=== PATIENT | female | born 1950 | race Caucasian/White ===

== ENCOUNTER 2018-03-20 06:08 | Day surgery (SDC) | payer MEDICARE, OTHER ==
[~2018-03-20] VITALS: Ht 170.2 cm; Wt 116.6 kg
[~2018-03-20 06:08] MED LIST: ASCO500 PO; FERR325 PO; Keflex500 MG PO; LEVSOD112 PO; LEVSOD50 PO; OMEPRAZOLE MAGN20 MG PO; OXYM.05NI; PANT20 PO; Prilosec Otc20 MG PO; Tamiflu75 MG PO; Zofran Odt4 MG SL
[2018-03-21 05:16] LABS: BASOPHILS ABSOLUTE AUTO 0.02 K/mm3 (0.00-0.23); BASOPHILS PERCENT AUTO 0 % (0-2); EOSINOPHILS ABSOLUTE AUTO 0.01 K/mm3 (0.00-0.68); EOSINOPHILS PERCENT AUTO 0 % (0-6); Hematocrit 29.9 % (33.0-51.0); Hemoglobin 9.2 g/dL (11.5-16.0); IMMATURE GRAN ABSOLUTE AUTO 0.08 K/mm3 (0.00-0.10); IMMATURE GRAN PERCENT AUTO 1 % (0-1); LYMPHOCYTES ABSOLUTE AUTO 1.09 K/mm3 (0.84-5.20); LYMPHOCYTES PERCENT AUTO 7 % (21-46); MONOCYTES ABSOLUTE AUTO 1.06 K/mm3 (0.16-1.47); MONOCYTES PERCENT AUTO 7 % (4-13); Mean Corpuscular HGB Conc 30.8 g/dL (31.5-36.5); Mean Corpuscular Volume 91 fL (80-100); Mean Platelet Volume 9.6 fL (9.1-12.4); NEUTROPHILS ABSOLUTE AUTO 12.55 K/mm3 (1.96-9.15); NEUTROPHILS PERCENT AUTO 85 % (41-73); Platelet Count 298 K/mm3 (150-400); RDW Coefficient Variation 15.6 % (11.7-14.2); RDW Standard Deviation 51.9 fL (35.1-46.3); Red Blood Cell Count 3.29 M/mm3 (3.80-5.20); White Blood Cell Count 14.81 K/mm3 (4.00-11.30)
[2018-03-21 05:33] LABS: Bun/Creatinine Ratio 17.3 (12.0-20.0); Calcium, Blood 8.4 mg/dL (8.5-10.1); Creatinine, Blood 0.98 mg/dL (0.40-1.00); Magnesium, Blood 2.2 mg/dL (1.6-2.4); Potassium, Blood 4.4 mmol/L (3.5-5.5)
[2018-03-21] MEDS ORDERED: ASPI325EC PO (15:30)
[2018-03-21] MEDS ORDERED: OXYC5 PO (15:30)
== END 2018-03-21 16:40 | disposition home or self-care (01) ==
LOC: ORSCMMR 06:08 → PRE IP 07:30 → EDSTATUS 07:30 → SURS 10:28 → ORSCMMR 03-21 16:40
PROVIDERS: Orthopaedic Surgery
PROC: 0SRD069 Replacement of Left Knee Joint with Oxidized Zirconium on Polyethylene Synthetic Substitute, Cemented, Open Approach (ICD-10-PCS; principal; 2018-03-20 07:30)
DX: M17.12 Unilateral primary osteoarthritis, left knee (principal); E07.9 Disorder of thyroid, unspecified; Z79.899 Other long term (current) drug therapy
CPT/HCPCS: 36415; 73560-LT; 80048; 83735; 85025; 88300; 97110; 97116; 97162; 97530; C1713; C1776; G8978; G8979; J0171; J0690; J0735; J1100; J1170; J1885; J2250; J2405; J2795; J3010; J7120

== ENCOUNTER 2019-08-24 17:27 | Inpatient (IN) | payer MEDICARE, OTHER ==
[~2019-08-24] VITALS: Ht 170.2 cm; Wt 115.9 kg
[~2019-08-24 17:27] MED LIST changes: +ASPI325EC PO; +OXYC5 PO
[2019-08-24 18:02] LABS: BASOPHILS ABSOLUTE AUTO 0.06 K/mm3 (0.00-0.23); BASOPHILS PERCENT AUTO 1 % (0-2); EOSINOPHILS ABSOLUTE AUTO 0.05 K/mm3 (0.00-0.68); EOSINOPHILS PERCENT AUTO 0 % (0-6); Hematocrit 37.3 % (33.0-51.0); Hemoglobin 11.4 g/dL (11.5-16.0); IMMATURE GRAN ABSOLUTE AUTO 0.06 K/mm3 (0.00-0.10); IMMATURE GRAN PERCENT AUTO 1 % (0-1); LYMPHOCYTES ABSOLUTE AUTO 1.02 K/mm3 (0.84-5.20); LYMPHOCYTES PERCENT AUTO 9 % (21-46); MONOCYTES PERCENT AUTO 4 % (4-13); Mean Corpuscular HGB 26.4 pg (26.0-34.0); Mean Corpuscular HGB Conc 30.6 g/dL (31.5-36.5); Mean Corpuscular Volume 86 fL (80-100); Mean Platelet Volume 9.5 fL (9.1-12.4); NEUTROPHILS ABSOLUTE AUTO 9.92 K/mm3 (1.96-9.15); NEUTROPHILS PERCENT AUTO 86 % (41-73); Platelet Count 479 K/mm3 (150-400); RDW Coefficient Variation 16.2 % (11.7-14.2); RDW Standard Deviation 50.9 fL (35.1-46.3); Red Blood Cell Count 4.32 M/mm3 (3.80-5.20); White Blood Cell Count 11.61 K/mm3 (4.00-11.30)
[2019-08-24 18:32] LABS: Alanine Aminotransfer (ALT/SGP 18 U/L (12-78); Albumin, Blood 3.9 g/dL (3.4-5.0); Albumin/Globulin Ratio 0.9 (0.8-1.8); Alk Phos 72 U/L (50-136); Anion Gap 5 mmol/L (6-16); Aspartate Aminotrans (AST/SGOT 17 U/L (12-37); Bilirubin, Total 0.5 mg/dL (0.1-1.0); Blood Urea Nitrogen 13 mg/dL (8-24); Bun/Creatinine Ratio 15.6 (12.0-20.0); CO2, Blood 26 mmol/L (21-32); Calcium, Blood 9.7 mg/dL (8.5-10.1); Chloride, Blood 108 mmol/L (98-108); Creatinine, Blood 0.83 mg/dL (0.40-1.00); Globulin, Blood 4.3 g/dL (2.2-4.0); Glomerular Filtration Rate >60 (60-); Glucose, Blood 126 mg/dL (70-99); Potassium, Blood 4.2 mmol/L (3.5-5.5); Sodium, Blood 139 mmol/L (136-145); Total Protein, Blood 8.2 g/dL (6.4-8.2)
[2019-08-24 18:33] LABS: Troponin I <0.015 ng/mL (0.000-0.040)
[2019-08-24] MEDS ORDERED: FER-IN-SOL15 MG/1 ML PO (22:24)
[2019-08-24] MEDS ORDERED: VITAMIN B-12 PO (22:25)
[2019-08-25] MEDS ORDERED: ASCO500 PO (00:25)
[2019-08-25] MEDS ORDERED: PROBIOTIC1 EAC4 PO (00:28)
--- NOTE | 2019-08-25 05:30 | NUR ---
SHIFT SUMMARY PT WAS A NEW ADMIT DURING THE NIGHT, ARRIVING ON THE FLOOR AT 2350. SHE WAS ADMITTED FOR ABD PAIN AND A SBO. PT IS A&O X 4, AND IS A 1PA TO AMBULATE R/T ABDOMINAL PAIN. PT WAS MEDICATED ONCE FOR ABD CRAMPING AND NAUSEA WITH 25 MCG IV FENTANYL AND IV ZOFRAN. NO COMPLAINTS OF SOB. PT'S ABD IS MODERATELY DISTENDED, SOFT, AND TENDER IN THE LOWER ABD. PT RECEIVED NS @ 100 ML/HR THROUGH THE NIGHT. VS STABLE. PT'S AM MED WAS HELD DUE TO PT'S NPO STATUS, AND PT'S REPORTED NAUSEA. NO OTHER ACUTE CHANGES IN PT CONDITION NOTED SINCE ADMISSION. WILL CONTINUE TO MONITOR AND TREAT PER EMAR UNTIL HAND OFF TO DAY SHIFT RN.
[2019-08-25 06:18] LABS: BASOPHILS ABSOLUTE AUTO 0.03 K/mm3 (0.00-0.23); BASOPHILS PERCENT AUTO 0 % (0-2); EOSINOPHILS ABSOLUTE AUTO 0.03 K/mm3 (0.00-0.68); EOSINOPHILS PERCENT AUTO 0 % (0-6); Hematocrit 34.1 % (33.0-51.0); Hemoglobin 10.5 g/dL (11.5-16.0); IMMATURE GRAN ABSOLUTE AUTO 0.05 K/mm3 (0.00-0.10); IMMATURE GRAN PERCENT AUTO 0 % (0-1); LYMPHOCYTES ABSOLUTE AUTO 0.89 K/mm3 (0.84-5.20); LYMPHOCYTES PERCENT AUTO 7 % (21-46); MONOCYTES ABSOLUTE AUTO 0.74 K/mm3 (0.16-1.47); MONOCYTES PERCENT AUTO 6 % (4-13); Mean Corpuscular HGB 26.6 pg (26.0-34.0); Mean Corpuscular HGB Conc 30.8 g/dL (31.5-36.5); Mean Corpuscular Volume 87 fL (80-100); Mean Platelet Volume 9.9 fL (9.1-12.4); NEUTROPHILS ABSOLUTE AUTO 11.23 K/mm3 (1.96-9.15); NEUTROPHILS PERCENT AUTO 87 % (41-73); Platelet Count 423 K/mm3 (150-400); RDW Coefficient Variation 16.4 % (11.7-14.2); RDW Standard Deviation 51.7 fL (35.1-46.3); Red Blood Cell Count 3.94 M/mm3 (3.80-5.20); White Blood Cell Count 12.97 K/mm3 (4.00-11.30)
[2019-08-25 06:31] LABS: Anion Gap 7 mmol/L (6-16); Blood Urea Nitrogen 15 mg/dL (8-24); Bun/Creatinine Ratio 17.1 (12.0-20.0); CO2, Blood 28 mmol/L (21-32); Calcium, Blood 9.1 mg/dL (8.5-10.1); Chloride, Blood 107 mmol/L (98-108); Creatinine, Blood 0.88 mg/dL (0.40-1.00); Glomerular Filtration Rate >60 (60-); Glucose, Blood 128 mg/dL (70-99); Potassium, Blood 4.1 mmol/L (3.5-5.5); Sodium, Blood 142 mmol/L (136-145)
--- NOTE | 2019-08-25 17:07 | NUR ---
SUMMARY PT WAS NAUSEOUS, VOMITING THIS AM, NO RELIEF FROM IV ZOFRAN, DR SAUCEDA NOTIFIED ORDER PHENERGAN 12.5 MG Q6. PT HAS HAD GOOD RELIEF, N/V CONTROL. DX SBO, DR WHALEN CONSULTED, IN TO SEE HER, NO SURG INTERVENTIONS @ THIS TIME, CONTINUING NPO STATUS, STATE SHE MAY HAVE ICE CHIPS. BT+, HYPO, SHE STATES PASSING GAS, LAST BM YESTERDAY AM @ HOME. NS RATE @ 200 ML/HR. PT IS A/O X4, UP IND, AMBULATED IN [facility] TODAY w . VSS.
--- NOTE | 2019-08-26 06:38 | NUR ---
SHIFT SUMMARY PT IS A 69 Y/O FEMALE, ADMITTED FOR A SBO. SHE IS A&O X 4, AND INDEPENDENT IN THE ROOM. PT REPORTED THAT NAUSEA HAD LESSENED DURING THE NIGHT, AND DENIED THE NEED FOR NAUSEA MEDS THROUGH THE NIGHT. SHE ALSO REPORTED THAT HER ABD PAIN WAS "BETTER", AND DENIED THE NEED FOR PAIN MEDS. PT REPORTED PASSING FLATUS, AND HAD ONE SMALL BOWEL MOVEMENT THIS MORNING, SOFT AND FORMED. VITAL SIGNS STABLE. NO ACUTE CHANGES IN PT CONDITION NOTED. PT RECEIVING NS @ 200 ML/HR CONTINUOUS. WILL CONTINUE TO MONITOR AND TREAT PER EMAR UNTIL HAND OFF TO DAY SHIFT RN.
[2019-08-26 07:00] LABS: Anion Gap 5 mmol/L (6-16); Blood Urea Nitrogen 13 mg/dL (8-24); Bun/Creatinine Ratio 13.9 (12.0-20.0); CO2, Blood 25 mmol/L (21-32); Calcium, Blood 7.8 mg/dL (8.5-10.1); Chloride, Blood 114 mmol/L (98-108); Creatinine, Blood 0.94 mg/dL (0.40-1.00); Glomerular Filtration Rate >60 (60-); Glucose, Blood 89 mg/dL (70-99); Potassium, Blood 3.8 mmol/L (3.5-5.5); Sodium, Blood 144 mmol/L (136-145)
--- NOTE | 2019-08-26 15:19 | NUR ---
DISCHARGE THIS AM PT STATE FEELING IMPROVED, +BM, PASSING GAS, NO ABD PAIN. SHE STATE LINGERING ABD TENDERNESS FROM VOMITING YESTERDAY. STATE WOULD LIKE TO INCREASE DIET. DR SAUCEDA NOTIFIED, ORDER FULL LIQUID BF, PT TOLERATED WELL, ADV TO SOFT FOODS FOR LUNCH, SHE AGAIN TOLERATED WELL. PT STATE SYMPTOMS RESOLVED. STATE SHE MAY GO HOME, PLACE ORDERS. NO NEW SCRIPTS. IV D/C INTACT. D/C INSTRUCT REVIEWED w PT & . THEY ARE PLEASANT/APPRECIATIVE. W/C ESCORT FROM HOSP PROVIDED.
== END 2019-08-26 15:12 | disposition home or self-care (01) | DRG 390 ==
LOC: ER 17:27 → MEDS 22:30 → ER 23:51 → MEDS 08-25 00:18
PROVIDERS: Hospitalist; Physician Assistant; ADMIT Family Medicine
DX: K56.609 Unspecified intestinal obstruction, unspecified as to partial versus complete obstruction (principal); E03.9 Hypothyroidism, unspecified; D50.9 Iron deficiency anemia, unspecified; Z85.51 Personal history of malignant neoplasm of bladder; Z93.6 Other artificial openings of urinary tract status
CPT/HCPCS: 36415; 74177; 80048; 80053; 83690; 84484; 85025; 93005; 93010; 96361; 96374-59; 96375; 96376; 99285-25; A9270-GY; J2405; J2550; J3010; J7030; J7120; Q9967

== ENCOUNTER 2020-06-07 04:01 | Emergency (ER) | payer MEDICARE, OTHER ==
[~2020-06-07] VITALS: Ht 170.2 cm; Wt 99.8 kg
[~2020-06-07 04:01] MED LIST changes: +FER-IN-SOL15 MG/1 ML PO; +PROBIOTIC1 EAC4 PO; +VITAMIN B-12 PO
[2020-06-07 04:31] LABS: BASOPHILS ABSOLUTE AUTO 0.04 K/mm3 (0.00-0.23); BASOPHILS PERCENT AUTO 0 % (0-2); EOSINOPHILS ABSOLUTE AUTO 0.04 K/mm3 (0.00-0.68); EOSINOPHILS PERCENT AUTO 0 % (0-6); Hematocrit 31.9 % (33.0-51.0); Hemoglobin 9.8 g/dL (11.5-16.0); IMMATURE GRAN ABSOLUTE AUTO 0.04 K/mm3 (0.00-0.10); IMMATURE GRAN PERCENT AUTO 0 % (0-1); LYMPHOCYTES ABSOLUTE AUTO 0.64 K/mm3 (0.84-5.20); LYMPHOCYTES PERCENT AUTO 7 % (21-46); MONOCYTES ABSOLUTE AUTO 0.73 K/mm3 (0.16-1.47); MONOCYTES PERCENT AUTO 8 % (4-13); Mean Corpuscular HGB 26.7 pg (26.0-34.0); Mean Corpuscular HGB Conc 30.7 g/dL (31.5-36.5); Mean Corpuscular Volume 87 fL (80-100); Mean Platelet Volume 9.6 fL (9.1-12.4); NEUTROPHILS ABSOLUTE AUTO 8.08 K/mm3 (1.96-9.15); NEUTROPHILS PERCENT AUTO 85 % (41-73); Platelet Count 342 K/mm3 (150-400); RDW Coefficient Variation 14.6 % (11.7-14.2); RDW Standard Deviation 46.6 fL (35.1-46.3); Red Blood Cell Count 3.67 M/mm3 (3.80-5.20); White Blood Cell Count 9.57 K/mm3 (4.00-11.30)
[2020-06-07 04:52] LABS: Alanine Aminotransfer (ALT/SGP 17 U/L (12-78); Albumin, Blood 3.4 g/dL (3.4-5.0); Albumin/Globulin Ratio 0.9 (0.8-1.8); Alk Phos 65 U/L (50-136); Anion Gap 5 mmol/L (6-16); Aspartate Aminotrans (AST/SGOT 21 U/L (12-37); Blood Urea Nitrogen 9 mg/dL (8-24); Bun/Creatinine Ratio 10.1 (12.0-20.0); CO2, Blood 25 mmol/L (21-32); Calcium, Blood 9.2 mg/dL (8.5-10.1); Chloride, Blood 111 mmol/L (98-108); Creatinine, Blood 0.89 mg/dL (0.40-1.00); Globulin, Blood 3.8 g/dL (2.2-4.0); Glomerular Filtration Rate >60 (60-); Glucose, Blood 125 mg/dL (70-99); Potassium, Blood 3.6 mmol/L (3.5-5.5); Sodium, Blood 141 mmol/L (136-145); Total Protein, Blood 7.2 g/dL (6.4-8.2)
[2020-06-07 05:33] LABS: Source, Urine Catheter
[2020-06-07 05:35] LABS: Appearance, Urine Clear (Clear); Bilirubin, Urine Neg (Neg); Blood, Urine 2+ (Neg); Color, Urine Yellow (P-Yellow); Glucose Qualitative, Urine Neg (Neg); Ketones, Urine 2+ (Neg); Leukocyte Esterase, Urine 1+ (Neg); Nitrite, Urine Neg (Neg); Protein, Urine Neg (Neg); Urobilinogen, Urine NORM (Normal); pH, Urine 6.5 (5.0-8.0)
[2020-06-07 05:50] LABS: Bacteria Mod /hpf; Red Blood Cells, Urine 0-2 /hpf (0-2); Squamous Epithelial Cells Rare /hpf (Few)
[2020-06-07] MEDS ORDERED: Macrobid 100 M100 MG PO (05:56)
[2020-06-07] MEDS ORDERED: KEFLEX500 MG PO (10:10)
== END 2020-06-07 06:15 | disposition home or self-care (01) ==
LOC: ER 04:01
PROVIDERS: Emergency Medicine
DX: N39.0 Urinary tract infection, site not specified (principal); Z79.899 Other long term (current) drug therapy; Z88.1 Allergy status to other antibiotic agents; Z88.5 Allergy status to narcotic agent; Z88.2 Allergy status to sulfonamides
CPT/HCPCS: 36415; 74176; 80053; 81001; 83605; 83690; 85025; 87040; 87077; 87086; 87186; 96374-59; 96375-59; 99284-25; J2405; J3010; J7030

== ENCOUNTER 2020-07-10 08:39 | Day surgery (SDC) | payer MEDICARE, OTHER ==
[~2020-07-10] VITALS: Ht 170.2 cm; Wt 101.5 kg
[~2020-07-10 08:39] MED LIST changes: +EUTHYROX50 MCG PO; +KEFLEX500 MG PO; -LEVSOD50 PO; +Macrobid 100 M100 MG PO
[2020-07-10] MEDS ORDERED: B COMPLEX FORM0.4 MG (08:52)
[2020-07-10] MEDS ORDERED: CODACE30 (08:53)
[2020-07-10] MEDS ORDERED: Ocuvite Preser1 EACH (08:53)
[2020-07-10] MEDS ORDERED: DIGESTIVE ADVA (08:53)
--- NOTE | 2020-07-10 09:01 | NUR ---
07/10/20 0901 Sandrine Miles 1 TRY RIGHT HADN RAN INTO VALVE
== END 2020-07-10 10:20 | disposition home or self-care (01) ==
LOC: ORSCSDS 08:39
PROVIDERS: Surgery
PROC: 0DB68ZX Excision of Stomach, Via Natural or Artificial Opening Endoscopic, Diagnostic (ICD-10-PCS; principal; 2020-07-10 10:00)
PROC: 0DB48ZX Excision of Esophagogastric Junction, Via Natural or Artificial Opening Endoscopic, Diagnostic (ICD-10-PCS; principal; 2020-07-10 10:00)
DX: D50.9 Iron deficiency anemia, unspecified (principal); Z87.11 Personal history of peptic ulcer disease; K29.70 Gastritis, unspecified, without bleeding; K20.80 Other esophagitis without bleeding; K21.9 Gastro-esophageal reflux disease without esophagitis; Z79.899 Other long term (current) drug therapy
CPT/HCPCS: 88305; 88312; 88342; J2704; J7120

== ENCOUNTER 2021-02-02 23:40 | Observation (INO) | payer MEDICARE, OTHER ==
[~2021-02-02] VITALS: Ht 170.2 cm; Wt 90.7 kg
[~2021-02-02 23:40] MED LIST changes: +B COMPLEX FORM0.4 MG; +CODACE30; +DIGESTIVE ADVA; +Ocuvite Preser1 EACH
[2021-02-03 00:17] LABS: BASOPHILS ABSOLUTE AUTO 0.06 K/mm3 (0.00-0.23); BASOPHILS PERCENT AUTO 1 % (0-2); EOSINOPHILS ABSOLUTE AUTO 0.08 K/mm3 (0.00-0.68); EOSINOPHILS PERCENT AUTO 1 % (0-6); Hematocrit 32.9 % (33.0-51.0); Hemoglobin 9.9 g/dL (11.5-16.0); IMMATURE GRAN ABSOLUTE AUTO 0.03 K/mm3 (0.00-0.10); IMMATURE GRAN PERCENT AUTO 0 % (0-1); LYMPHOCYTES ABSOLUTE AUTO 2.12 K/mm3 (0.84-5.20); LYMPHOCYTES PERCENT AUTO 21 % (21-46); MONOCYTES ABSOLUTE AUTO 0.47 K/mm3 (0.16-1.47); MONOCYTES PERCENT AUTO 5 % (4-13); Mean Corpuscular HGB 26.8 pg (26.0-34.0); Mean Corpuscular HGB Conc 30.1 g/dL (31.5-36.5); Mean Corpuscular Volume 89 fL (80-100); NEUTROPHILS ABSOLUTE AUTO 7.55 K/mm3 (1.96-9.15); NEUTROPHILS PERCENT AUTO 73 % (41-73); Platelet Count 430 K/mm3 (150-400); RDW Coefficient Variation 13.9 % (11.7-14.2); RDW Standard Deviation 45.1 fL (35.1-46.3); Red Blood Cell Count 3.69 M/mm3 (3.80-5.20); White Blood Cell Count 10.31 K/mm3 (4.00-11.30)
[2021-02-03 00:35] LABS: Albumin, Blood 3.6 g/dL (3.4-5.0); Albumin/Globulin Ratio 0.9 (0.8-1.8); Bilirubin, Total 0.3 mg/dL (0.1-1.0); Bun/Creatinine Ratio 13.5 (12.0-20.0); Calcium, Blood 9.6 mg/dL (8.5-10.1); Creatinine, Blood 1.11 mg/dL (0.40-1.00); Globulin, Blood 3.8 g/dL (2.2-4.0); Potassium, Blood 3.6 mmol/L (3.5-5.5); Total Protein, Blood 7.4 g/dL (6.4-8.2)
[2021-02-03] MEDS ORDERED: ACET325 PO (05:58)
--- NOTE | 2021-02-03 06:12 | NUR ---
ADMIT ER ADMIT WITH SBO. PT CURRENTLY DENIES NEED FOR PAIN MEDICATIONS AND REPORTS HAVING MILD NAUSEA, BUT HAS IMPROVED SINCE BEING MEDICATED IN ER. NPO. IVF INFUSING PER ORDERS. PT DECLINES NGT PLACEMENT UNTIL AFTER GENERAL SX CONSULT--DR. CLAUDIO AWARE OF CONSULT. PT MANAGES HER UROSTOMY INDEPENDENTLY. EMPTIED AT THIS TIME. ORIENTED TO ROOM AND CALL LIGHT. SPOUSE AT BEDSIDE.
[2021-02-03 07:30] LABS: BASOPHILS ABSOLUTE AUTO 0.03 K/mm3 (0.00-0.23); BASOPHILS PERCENT AUTO 0 % (0-2); EOSINOPHILS ABSOLUTE AUTO 0.03 K/mm3 (0.00-0.68); EOSINOPHILS PERCENT AUTO 0 % (0-6); Hematocrit 33.3 % (33.0-51.0); Hemoglobin 10.2 g/dL (11.5-16.0); IMMATURE GRAN ABSOLUTE AUTO 0.05 K/mm3 (0.00-0.10); IMMATURE GRAN PERCENT AUTO 0 % (0-1); LYMPHOCYTES ABSOLUTE AUTO 0.31 K/mm3 (0.84-5.20); LYMPHOCYTES PERCENT AUTO 2 % (21-46); MONOCYTES PERCENT AUTO 5 % (4-13); Mean Corpuscular HGB 27.5 pg (26.0-34.0); Mean Corpuscular HGB Conc 30.6 g/dL (31.5-36.5); Mean Corpuscular Volume 90 fL (80-100); NEUTROPHILS ABSOLUTE AUTO 14.06 K/mm3 (1.96-9.15); NEUTROPHILS PERCENT AUTO 93 % (41-73); Platelet Count 389 K/mm3 (150-400); RDW Coefficient Variation 14.2 % (11.7-14.2); RDW Standard Deviation 45.9 fL (35.1-46.3); Red Blood Cell Count 3.71 M/mm3 (3.80-5.20); White Blood Cell Count 15.18 K/mm3 (4.00-11.30)
[2021-02-03 07:49] LABS: Albumin, Blood 3.3 g/dL (3.4-5.0); Albumin/Globulin Ratio 0.9 (0.8-1.8); Bilirubin, Total 0.5 mg/dL (0.1-1.0); Creatinine, Blood 1.13 mg/dL (0.40-1.00); Globulin, Blood 3.8 g/dL (2.2-4.0); Potassium, Blood 4.5 mmol/L (3.5-5.5); Total Protein, Blood 7.1 g/dL (6.4-8.2)
--- NOTE | 2021-02-03 15:37 | NUR ---
PATIENT TOOK A WALK AROUND THE UNIT WITH SPOUSE. REPORTS PASSING GAS. RESTING IN BED.
--- NOTE | 2021-02-03 18:23 | NUR ---
SHIFT SUMMARY: PATIENT RESTED IN ROOM UNTIL AFTERNOON. SHE TOOK TWO WALKS AROUND THE UNIT AND TOLERATED IT WELL. REPORTS DISCOMFORT BUT STATES, "IT'S JUST A WAITING GAME." SHE HAS FLUIDS RUNNING AND CAN HAVE ICE CHIPS. SHE HAD A QUESTION ABOUT HER IRON LEVEL SHE ATTEMPTED TO INCREASE HER IRON PRIOR TO COMING TO THE HOSPITAL. WILL REPORT TO NOC NURSE.
--- NOTE | 2021-02-04 04:38 | NUR ---
SHIFT SUMMARY NO IV ACCESS NEEDED PER DR. CLAUDIO. PT [place] ICE CHIPS AND SIPS OF WATER. CONT TO REPORT FLATUS. HAS DENIED ABD PAIN AND NAUSEA. INDEP IN ROOM. EMPTYING UROSTOMY PRN. USES CALL LIGHT APPROPRIATELY.
[2021-02-04 09:16] LABS: BASOPHILS ABSOLUTE AUTO 0.03 K/mm3 (0.00-0.23); BASOPHILS PERCENT AUTO 1 % (0-2); EOSINOPHILS PERCENT AUTO 2 % (0-6); Hematocrit 31.9 % (33.0-51.0); Hemoglobin 9.6 g/dL (11.5-16.0); IMMATURE GRAN ABSOLUTE AUTO 0.02 K/mm3 (0.00-0.10); IMMATURE GRAN PERCENT AUTO 0 % (0-1); LYMPHOCYTES ABSOLUTE AUTO 1.24 K/mm3 (0.84-5.20); LYMPHOCYTES PERCENT AUTO 22 % (21-46); MONOCYTES PERCENT AUTO 7 % (4-13); Mean Corpuscular HGB 27.2 pg (26.0-34.0); Mean Corpuscular HGB Conc 30.1 g/dL (31.5-36.5); Mean Corpuscular Volume 90 fL (80-100); Mean Platelet Volume 10.2 fL (9.1-12.4); NEUTROPHILS ABSOLUTE AUTO 3.82 K/mm3 (1.96-9.15); NEUTROPHILS PERCENT AUTO 68 % (41-73); Platelet Count 356 K/mm3 (150-400); RDW Coefficient Variation 14.5 % (11.7-14.2); RDW Standard Deviation 47.6 fL (35.1-46.3); Red Blood Cell Count 3.53 M/mm3 (3.80-5.20); White Blood Cell Count 5.61 K/mm3 (4.00-11.30)
[2021-02-04 09:40] LABS: Albumin, Blood 3.2 g/dL (3.4-5.0); Anion Gap 3 mmol/L (6-16); Blood Urea Nitrogen 17 mg/dL (8-24); Bun/Creatinine Ratio 16.3 (12.0-20.0); CO2, Blood 28 mmol/L (21-32); Calcium, Blood 8.8 mg/dL (8.5-10.1); Chloride, Blood 111 mmol/L (98-108); Creatinine, Blood 1.04 mg/dL (0.40-1.00); Ferritin, Serum 18 ng/mL (8-252); Glomerular Filtration Rate 52 (60-); Glucose, Blood 99 mg/dL (70-99); Iron Serum 24 ug/dL (50-170); Percent Saturation 8.1 % (15.0-50.0); Phosphorus, Blood 2.5 mg/dL (2.5-4.9); Potassium, Blood 4.1 mmol/L (3.5-5.5); Sodium, Blood 142 mmol/L (136-145); Total Iron Binding Capacity 296 ug/dL (250-450)
--- NOTE | 2021-02-04 17:00 | NUR ---
PT REPORTS HAVING A BOWEL MOVEMENT TODAY AND PASSING FLATUS. PT DECLINED ADVANCING DIET BEYOND FULL LIQUID DIET AT THIS TIME, SHE REPORTS HAVING MUTIPLE SBO'S IN THE PAST AND IS HESITANT TO ADVANCE QUICKLY. SPOKE WITH DR. CLAUDIO REGARDING PATIENTS WISHES AND SHE IS OKAY WITH PATIENT DISCHARGING ON FULL LIQUID DIET. NOTIFIED DR. PACHECO, PLAN IS TO CONTINUE WITH DISCHARGE.
[2021-02-04] MEDS ORDERED: ZOFRAN4 MG PO (17:52)
== END 2021-02-04 18:00 | disposition home or self-care (01) ==
LOC: ER 23:40 → SURS 23:41 → ER 02-03 04:16 → SURS 02-03 05:39
PROVIDERS: Internal Medicine; Physician Assistant; ADMIT Internal Medicine
DX: K56.609 Unspecified intestinal obstruction, unspecified as to partial versus complete obstruction (principal); E03.9 Hypothyroidism, unspecified; D50.9 Iron deficiency anemia, unspecified; M19.90 Unspecified osteoarthritis, unspecified site; Z93.6 Other artificial openings of urinary tract status; Z85.51 Personal history of malignant neoplasm of bladder; Z79.899 Other long term (current) drug therapy; Z88.2 Allergy status to sulfonamides; Z88.1 Allergy status to other antibiotic agents; Z88.5 Allergy status to narcotic agent
CPT/HCPCS: 36415; 74177; 80053; 80069; 82607; 82728; 82746; 83540; 83550; 85025; 96374; 96375; 96376; 99285-25; G0378; J1170; J2405; J2550; J3010; J7030; Q9967

== ENCOUNTER 2022-08-27 00:10 | Day surgery (SDC) | payer OTHER ==
[~2022-08-27 00:10] MED LIST changes: +ACET325 PO; +ZOFRAN4 MG PO
[2022-08-27] MEDS ORDERED: Avidoxy100 MG PO (07:56)
--- NOTE | 2022-08-27 10:27 | NUR ---
0930 THIS RN ACCIDENTALLY STOPPED WRONG UNIT. 2ND UNIT OF [facility] WAS STARTED AT 0930, PTS VSS, WILL CONTINUE TO MONITOR T/O INFUSION PER PROTOCOL AND WILL DOCUMENT STOP TIME IN N/N
--- NOTE | 2022-08-27 11:06 | NUR ---
[facility] UNIT #2 END TIME IS 1106.
== END 2022-08-27 11:10 | disposition home or self-care (01) ==
LOC: ATC 00:10
DX: R06.00 Dyspnea, unspecified (principal); D63.8 Anemia in other chronic diseases classified elsewhere; F17.210 Nicotine dependence, cigarettes, uncomplicated; Z88.1 Allergy status to other antibiotic agents; Z88.8 Allergy status to other drugs, medicaments and biological substances; Z79.899 Other long term (current) drug therapy
CPT/HCPCS: 36430; 86850; 86900; 86901; 86923; J7050; P9016

== ENCOUNTER 2022-10-05 08:36 | Day surgery (SDC) | payer OTHER ==
[~2022-10-05] VITALS: Ht 170.2 cm; Wt 103.2 kg
[2022-10-05] VITALS (14 sets, daily range): BP systolic 130–149; BP diastolic 62–89
[~2022-10-05 08:36] MED LIST changes: +Avidoxy100 MG PO; -B COMPLEX FORM0.4 MG; +B COMPLEX FORM0.4 MG PO; -FER-IN-SOL15 MG/1 ML PO; +FERSU90EL PO
--- NOTE | 2022-10-05 11:45 | NUR ---
Ambulatory in Day Surgery. Pre-Op teaching done. Pt verbalizes understanding. Patient confirms NPO status and agrees with scheduled surgery. Lungs clear T/O to Auscultation. Patient reports completing Chlorhexadine shower X2 prior to admission to hospital.
[2022-10-05] MEDS ORDERED: LEVSOD100 PO (16:05)
--- NOTE | 2022-10-05 17:33 | NUR ---
Pt. is awake in bed and welcomes my visit. Pt. displays evidence of caution at first. Facilitated a short life review and listened with empathy and a calming presence. CYTOGENETIC TECHNICIAN brought Pt. her dinner, so this equine manager kept the visit brief. Prayed for the Pt. Pt. verbalized gratitude for the spiritual care visit and welcomed this equine manager to return.
--- NOTE | 2022-10-05 19:47 | NUR ---
SHIFT SUMMARY POD 0 L TKA. ALERT AND ORIENTED, TOLERATING REGULAR DIET WITH GROUND MEAT. AND ORAL LIQUIDS. HX BLADDER CANCER WITH UROSTOMY, GOOD URINE OUTPUT WHICH PATIENT MANAGES. SBA UP TO BATHROOM AND RECLINER. NO PT THIS SHIFT. COMPLAINED OF LEFT SHOULDER PAIN, RESOLVED WITH HEATING PAD. MEDICATED FOR PAIN PER EMAR. CRISEL C/D/I. REPORT GIVEN TO BALLAST CLEANING MACHINE OPERATOR RN.
[2022-10-06 00:30] VITALS: BP 136/66
[2022-10-06 04:49] VITALS: BP 140/67
[2022-10-06 05:31] LABS: BASOPHILS ABSOLUTE AUTO 0.01 K/mm3 (0.00-0.23); BASOPHILS PERCENT AUTO 0 % (0-2); EOSINOPHILS ABSOLUTE AUTO 0.01 K/mm3 (0.00-0.68); EOSINOPHILS PERCENT AUTO 0 % (0-6); IMMATURE GRAN ABSOLUTE AUTO 0.04 K/mm3 (0.00-0.10); IMMATURE GRAN PERCENT AUTO 0 % (0-1); LYMPHOCYTES PERCENT AUTO 6 % (21-46); MONOCYTES ABSOLUTE AUTO 0.85 K/mm3 (0.16-1.47); MONOCYTES PERCENT AUTO 7 % (4-13); Mean Corpuscular HGB 28.7 pg (26.0-34.0); Mean Corpuscular HGB Conc 30.8 g/dL (31.5-36.5); Mean Corpuscular Volume 93 fL (80-100); Mean Platelet Volume 9.8 fL (9.1-12.4); NEUTROPHILS ABSOLUTE AUTO 11.27 K/mm3 (1.96-9.15); NEUTROPHILS PERCENT AUTO 87 % (41-73); Platelet Count 317 K/mm3 (150-400); RDW Coefficient Variation 14.1 % (11.7-14.2); Red Blood Cell Count 2.79 M/mm3 (3.80-5.20); White Blood Cell Count 12.98 K/mm3 (4.00-11.30)
--- NOTE | 2022-10-06 05:48 | NUR ---
SUMMARY PATIENT IS S/P R TKA. AQUACEL IS IN PLACE C/D/I. JAIME TRIPLETT, KAYLA MELTON AND SCD'S IN PLACE T/O SHIFT. IV FLUIDS RUNNING TKO. PATIENT TOLERATES PO INTAKE AND HAS ADEQUATE URINE OUTPUT IN UROSTOMY THAT SHE MANAGES HERSELF. PAITENT IS 1 ASSIST W/ GB, AND FWW. PAIN IS MANAGED WELL THIS SHIFT. VSS, PLAN FOR THERAPY THIS AM AND DISCHARGE HOME.
[2022-10-06 05:55] LABS: Bun/Creatinine Ratio 24.9 (12.0-20.0); Calcium, Blood 8.7 mg/dL (8.5-10.1); Creatinine, Blood 0.92 mg/dL (0.40-1.00); Potassium, Blood 4.4 mmol/L (3.5-5.5)
[2022-10-06 07:23] VITALS: BP 120/63
[2022-10-06] MEDS ORDERED: ASPI81CH PO (08:40)
[2022-10-06] MEDS ORDERED: Percocet 5-3251 EACH PO (08:40)
--- NOTE | 2022-10-06 09:30 | NUR ---
DISCHARGE NOTE: PATIENT WAS EDUCATED ON DISCHARGE INSTRUCTIONS. SHE VERBALIZED UNDERSTANDING OF INSTRUCTIONS AND HAD NO FURTHER QUESTIONS AT THIS TIME. IV WAS TAKEN OUT AND WNL. PAIN IS MANAGED WITH ORAL PAIN MEDICATIONS. HER RIGHT KNEE HAS AN MIKE WRAP AND AQUACEL THAT ARE C/D/I. DENIES NUMBNESS OR TINGLING IN ALL EXTREMITIES. PATIENT IS VOIDING AND TOLERATING PO INTAKE. SHE IS A SBA WITH FWW AND GAIT BELT. SHE IS DRESSED AND HAS PERSONAL ITEMS IN THE ROOM GATHERED. PATIENT IS BEING WHEELCHAIRED OUT TO HER HUSBANDS CAR TO BE TAKEN HOME. HARD PERSCRIPTIONS ARE IN HER INSTRUCTIONS FOLDER WHICH PATIENT IS AWARE OF.
== END 2022-10-06 09:35 | disposition home or self-care (01) ==
LOC: ORSCMMR 08:36 → ORD 13:45 → ORSCMMR 13:45 → SURS 14:36 → ORSCMMR 10-06 09:35
PROVIDERS: Orthopaedic Surgery
PROC: 0SRC0JA Replacement of Right Knee Joint with Synthetic Substitute, Uncemented, Open Approach (ICD-10-PCS; principal; 2022-10-05 12:00)
PROC: 8E0Y0CZ Robotic Assisted Procedure of Lower Extremity, Open Approach (ICD-10-PCS; principal; 2022-10-05 12:00)
DX: M17.11 Unilateral primary osteoarthritis, right knee (principal); E03.9 Hypothyroidism, unspecified; K21.9 Gastro-esophageal reflux disease without esophagitis; Z79.899 Other long term (current) drug therapy; E66.9 Obesity, unspecified; Z68.37 Body mass index [BMI] 37.0-37.9, adult
CPT/HCPCS: 27447; 20985; S2900; 36415; 73560-RT; 80048; 85025; 97110; 97116; 97162; A9270; C1776; J0171; J0690; J0735; J1100; J1885; J2250; J2405; J2704; J2795; J3010; J7120

== ENCOUNTER 2023-01-19 19:05 | Inpatient (IN) | payer OTHER ==
[~2023-01-19] VITALS: Ht 170.2 cm; Wt 105.7 kg
[~2023-01-19 19:05] MED LIST changes: +ASPI81CH PO; +LEVSOD100 PO; +Percocet 5-3251 EACH PO
[2023-01-19 19:24] LABS: BASOPHILS ABSOLUTE AUTO 0.03 K/mm3 (0.00-0.23); BASOPHILS PERCENT AUTO 0 % (0-2); EOSINOPHILS ABSOLUTE AUTO 0.06 K/mm3 (0.00-0.68); EOSINOPHILS PERCENT AUTO 1 % (0-6); Hematocrit 32.2 % (33.0-51.0); IMMATURE GRAN ABSOLUTE AUTO 0.06 K/mm3 (0.00-0.10); IMMATURE GRAN PERCENT AUTO 1 % (0-1); LYMPHOCYTES ABSOLUTE AUTO 0.72 K/mm3 (0.84-5.20); LYMPHOCYTES PERCENT AUTO 6 % (21-46); MONOCYTES ABSOLUTE AUTO 0.67 K/mm3 (0.16-1.47); MONOCYTES PERCENT AUTO 6 % (4-13); Mean Corpuscular HGB Conc 31.1 g/dL (31.5-36.5); Mean Corpuscular Volume 87 fL (80-100); Mean Platelet Volume 9.8 fL (9.1-12.4); NEUTROPHILS ABSOLUTE AUTO 10.59 K/mm3 (1.96-9.15); NEUTROPHILS PERCENT AUTO 87 % (41-73); Platelet Count 447 K/mm3 (150-400); RDW Coefficient Variation 15.6 % (11.7-14.2); RDW Standard Deviation 49.2 fL (35.1-46.3); Red Blood Cell Count 3.71 M/mm3 (3.80-5.20); White Blood Cell Count 12.13 K/mm3 (4.00-11.30)
[2023-01-19 19:44] LABS: Albumin, Blood 3.7 g/dL (3.4-5.0); Bilirubin, Total 0.5 mg/dL (0.1-1.0); Bun/Creatinine Ratio 21.1 (12.0-20.0); Calcium, Blood 9.6 mg/dL (8.5-10.1); Creatinine, Blood 0.95 mg/dL (0.40-1.00); Globulin, Blood 3.6 g/dL (2.2-4.0); Potassium, Blood 4.3 mmol/L (3.5-5.5); Total Protein, Blood 7.3 g/dL (6.4-8.2)
[2023-01-20 01:23] VITALS: BP 128/90
--- NOTE | 2023-01-20 04:42 | NUR ---
PT IS A&O4, UP SB TO BR, RA, ZOFRAN GIVEN PER MAR FOR NAUSEA X1, CONTINUE TO MONITOR FOR VOMITING FOR POSSIBLE NG TUBE PLACEMENT, NO COMPLAINTS OF PAIN OVERNIGHT, FIRE SAFETY ED PROVIDED, CONTINUE POC
[2023-01-20 06:24] LABS: Bun/Creatinine Ratio 23.9 (12.0-20.0); Creatinine, Blood 1.09 mg/dL (0.40-1.00); Potassium, Blood 4.6 mmol/L (3.5-5.5)
[2023-01-20 07:49] VITALS: BP 124/74
[2023-01-20 15:58] VITALS: BP 128/68
--- NOTE | 2023-01-20 17:37 | NUR ---
SHIFT SUMMARY- PT ALERT AND ORIENTED, INDEPENDEDNT IN THE ROOM. ADMITTED FOR SMALL BOWEL OBSTRUCTION. PT HAS DENIED THE NEED FOR PAIN MEDS ALL DAY, SHE HAS BEEN UP AND WALKING IN THE HALLS FREQUENTLY. PT ENDORSES PASSING BEHZAD SEVERAL TIMES TODAY, STILL NO STOOLS. PT IV WAS REDRESSED TODAY, GOOD BLOOD RETURN AND FLUSH AFTER DRESSING CHANGE. RUNNING NS AT 100ML/HR, IV IS POSITIONAL. PT CURRENTLY IN BED, CALL LIGHT IN REACH NO S&S OF DISTRESS AT THIS TIME.
[2023-01-20 19:31] VITALS: BP 129/84
--- NOTE | 2023-01-20 21:35 | NUR ---
IV IS POSITIONAL AND WILL NO LONGER FLUSH, WAITING POWERGLIDE PLACEMENT FOR CONTINUATION OF IV FLUIDS CONTINUE POC
--- NOTE | 2023-01-21 04:23 | NUR ---
PT IS A&O4, INDEPENDENT IN THE ROOM, RA, VSS, POWERGLIDE TO ASHU PLACED OVERNIGHT INFUSING FLUIDS, NO COMPLAINTS OF PAIN NAUSEA, OR VOMITING THIS SHIFT, FIRE SAFETY EDUCATION PROVIDED, CONTINUE POC
--- NOTE | 2023-01-21 04:53 | NUR ---
PT HAD MODERATE SIZED BM THIS AM, PASSING FLATUS
[2023-01-21 05:42] LABS: BASOPHILS ABSOLUTE AUTO 0.03 K/mm3 (0.00-0.23); BASOPHILS PERCENT AUTO 1 % (0-2); EOSINOPHILS PERCENT AUTO 4 % (0-6); IMMATURE GRAN ABSOLUTE AUTO 0.01 K/mm3 (0.00-0.10); IMMATURE GRAN PERCENT AUTO 0 % (0-1); LYMPHOCYTES PERCENT AUTO 19 % (21-46); MONOCYTES ABSOLUTE AUTO 0.48 K/mm3 (0.16-1.47); MONOCYTES PERCENT AUTO 9 % (4-13); Mean Corpuscular HGB 26.7 pg (26.0-34.0); Mean Corpuscular Volume 89 fL (80-100); Mean Platelet Volume 9.7 fL (9.1-12.4); NEUTROPHILS ABSOLUTE AUTO 3.49 K/mm3 (1.96-9.15); NEUTROPHILS PERCENT AUTO 67 % (41-73); Platelet Count 337 K/mm3 (150-400); RDW Coefficient Variation 15.7 % (11.7-14.2); RDW Standard Deviation 50.7 fL (35.1-46.3); Red Blood Cell Count 3.37 M/mm3 (3.80-5.20); White Blood Cell Count 5.21 K/mm3 (4.00-11.30)
[2023-01-21 06:03] LABS: Bun/Creatinine Ratio 19.6 (12.0-20.0); Calcium, Blood 8.5 mg/dL (8.5-10.1); Creatinine, Blood 0.92 mg/dL (0.40-1.00)
--- NOTE | 2023-01-21 09:04 | NUR ---
pt a/ox4, pleasant and cooperative with care, follows commands well, denies pain, states she slept ok, lungs are clear t/o, resp even and unlabored, no cough noted, on r/a, hrr, no edema noted, ppp+2, cap refill <3sec, vs stable, afebrile, iv is power glide to trinh site is clear and patent, btx4, abd flat soft some tender, voids via ostomoy, skin c/w/d, tomi carty, call light in reach. had a bm last night.
--- NOTE | 2023-01-21 14:24 | NUR ---
Pt has been discharged to home, went over instructions with her, verbalized understanding, no new medications, iv removed intact, left via wheelchair with nurse in attendence.
== END 2023-01-21 14:16 | disposition home or self-care (01) | DRG 390 ==
LOC: ER 19:05 → MEDS 22:39 → ENPENDDIS 01-21 13:04 → MEDS 01-21 14:16
PROVIDERS: Emergency Medicine; Family Medicine; ADMIT Internal Medicine
DX: K56.609 Unspecified intestinal obstruction, unspecified as to partial versus complete obstruction (principal); E03.9 Hypothyroidism, unspecified; D63.8 Anemia in other chronic diseases classified elsewhere; Z96.651 Presence of right artificial knee joint; Z85.51 Personal history of malignant neoplasm of bladder; Z98.890 Other specified postprocedural states; Z90.6 Acquired absence of other parts of urinary tract; Z88.1 Allergy status to other antibiotic agents; Z88.2 Allergy status to sulfonamides; Z88.8 Allergy status to other drugs, medicaments and biological substances; Z79.899 Other long term (current) drug therapy; Z90.89 Acquired absence of other organs; Z97.8 Presence of other specified devices
CPT/HCPCS: 36415; 71046; 74177; 80048; 80053; 83690; 85025; 93005; 93010; 96374-59; 96375; 99285-25; C1751; J1885; J2405; J7030; J7120; Q9967

== ENCOUNTER 2024-01-05 10:07 | Emergency (ER) | payer OTHER ==
[~2024-01-05] VITALS: Ht 165.1 cm; Wt 106.6 kg
[2024-01-05] MEDS ORDERED: Diltiazem HCl 5 MG / ML 5ML Vial IV ONE (10:35)
[2024-01-05] MEDS ORDERED: EUTHYROX50 MC1 PO (10:40)
[2024-01-05] MEDS ORDERED: OMEP20ER PO (10:41)
[2024-01-05] MEDS ORDERED: VITAMIN B12500 MCG (10:42)
[2024-01-05 11:00] LABS: BASOPHILS ABSOLUTE AUTO 0.06 K/mm3 (0.00-0.23); BASOPHILS PERCENT AUTO 1 % (0-2); EOSINOPHILS ABSOLUTE AUTO 0.08 K/mm3 (0.00-0.68); EOSINOPHILS PERCENT AUTO 1 % (0-6); Hematocrit 35.1 % (33.0-51.0); Hemoglobin 10.8 g/dL (11.5-16.0); IMMATURE GRAN ABSOLUTE AUTO 0.03 K/mm3 (0.00-0.10); IMMATURE GRAN PERCENT AUTO 0 % (0-1); LYMPHOCYTES ABSOLUTE AUTO 1.58 K/mm3 (0.84-5.20); LYMPHOCYTES PERCENT AUTO 20 % (21-46); MONOCYTES ABSOLUTE AUTO 0.64 K/mm3 (0.16-1.47); MONOCYTES PERCENT AUTO 8 % (4-13); Mean Corpuscular HGB 25.4 pg (26.0-34.0); Mean Corpuscular HGB Conc 30.8 g/dL (31.5-36.5); Mean Corpuscular Volume 83 fL (80-100); Mean Platelet Volume 10.3 fL (9.1-12.4); NEUTROPHILS ABSOLUTE AUTO 5.52 K/mm3 (1.96-9.15); NEUTROPHILS PERCENT AUTO 70 % (41-73); Platelet Count 418 K/mm3 (150-400); RDW Coefficient Variation 14.6 % (11.7-14.2); RDW Standard Deviation 43.7 fL (35.1-46.3); Red Blood Cell Count 4.25 M/mm3 (3.80-5.20); White Blood Cell Count 7.91 K/mm3 (4.00-11.30)
[2024-01-05 11:17] LABS: Bun/Creatinine Ratio 18.9 (12.0-20.0); Calcium, Blood 8.8 mg/dL (8.5-10.1); Creatinine, Blood 1.06 mg/dL (0.40-1.00); Magnesium, Blood 2.2 mg/dL (1.6-2.4); Potassium, Blood 4.1 mmol/L (3.5-5.5)
[2024-01-05 11:34] LABS: Free Thyroxine 1.06 ng/dL (0.70-1.60); Thyroid Stimulating Hormone 0.985 uIU/mL (0.360-4.800)
[2024-01-05] MEDS ORDERED: METO25 PO (12:26)
[2024-01-05 12:43] VITALS: BP 117/75
== END 2024-01-05 12:43 | disposition home or self-care (01) ==
LOC: ER 10:07
PROVIDERS: Student in an Organized Health Care Education/Training Program
DX: I47.10 Supraventricular tachycardia, unspecified (principal); E03.9 Hypothyroidism, unspecified; Z79.899 Other long term (current) drug therapy; Z88.5 Allergy status to narcotic agent; Z88.1 Allergy status to other antibiotic agents
CPT/HCPCS: 71045; 80048; 83735; 84439; 84443; 85025; 93005; 93010; 93242; 96374; 99285-25